=== PATIENT | female | born 1995 | race Asian ===

== ENCOUNTER → 2024-11-27 | Emergency (ER) | payer MEDICAID, OTHER ==
[~2024-11-27] VITALS: Ht 160 cm; Wt 55.3 kg
[~2024-11-27] MED LIST: CEPH500T PO; CEphaleXIN 500 MG CAPSULE ONE; HYDR-4209 PO; HYDROMORPHONE 2 MG/1 ML DISP.SYRIN ONE; INSULIN REGULAR, HUMAN 1000 UNIT/10 ML VIAL ONE; LIDOCAINE HCL 1% 20 ML VIAL ONE; NEOM28.37 TP; SILVER NITRATE APPLICATOR STICK EACH TP ONE; SODIUM BICARBONATE 4.2 % (NEUT) 5 ML VIAL ONE; diphenhydrAMINE 50 MG/1 ML VIAL ONE
[2024-11-27 01:13] VITALS: O2SAT 100
[2024-11-27] MEDS: CEphaleXIN 500 MG CAPSULE PO ONE (04:01)
== END | disposition home or self-care (01) ==
LOC: ER 03:30
DX: S61.303A Unspecified open wound of left middle finger with damage to nail, initial encounter (principal); Z88.7 Allergy status to serum and vaccine; W45.8XXA Other foreign body or object entering through skin, initial encounter; Y93.89 Activity, other specified; Y92.89 Other specified places as the place of occurrence of the external cause; Y99.8 Other external cause status
CPT/HCPCS: 64450; 99284; J1171; J1200; J1815; J3490; A4606; A4663